=== PATIENT | female | born 1935 | race Caucasian/White ===

== ENCOUNTER 2016-11-27 11:26 | Emergency (ER) | payer MEDICARE ==
--- NOTE | 2016-11-27 11:40 | ED Physician Documentation ---
General Adult - HISTORIAN Historian: patient, other (family member) - HPI Stated Complaint: confusion "feeling funny" at 953 Chief Complaint: Altered Mental Status Onset: hours (2) Timing: still present Severity: mild <Chinyere Medina - Last Filed: 11/27/16 11:39> - HPI Further Comments: yes (Patient states that at 0950 this am she developed a sudden onset of some speach difficulties, was having some problems getting her words out, she could think of them OK. She called her grandaughter and she stated that it was hard to understand her grandmother because her speech was mixed up. She did not have any weakness or numbness, no slurred speech or swallowing problems. She came to the ED for evaluation. Did seem to be doing a little better on admission. She has not had any previous CVA or TIAs. Does have a history of hyperlipidemia.) - ROS CONST: no problems NEURO/PSYCH: difficulty with speech. denies: headache, dizziness, tingling, numbness, difficulty walking - PAST HX Past History: other (osteoarthritis, , depression, hyperlipidemia) Surgeries/Procedures: cholecystectomy, hysterectomy (BSO) - SOCIAL HX Smoking History: non-smoker Alcohol Use: none Drug Use: none - FAMILY HX Family History: No - VITAL SIGNS Vital Signs: Vital Signs Temp Pulse Resp BP Pulse Ox 98.4 F 92 H 18 162/91 96 11/27/16 11:27 11/27/16 11:27 11/27/16 11:27 11/27/16 11:27 11/27/16 11:27 - REVIEWED ASSESSMENTS Nursing Assessment Reviewed: Yes Vitals Reviewed: Yes <Monty Aden - Last Filed: 11/27/16 12:33> - PAST HX Allergies/Adverse Reactions: Allergies Allergy/AdvReac Type Severity Reaction Status Date / Time sulfamethoxazole Allergy Verified 11/27/16 12:27 [From Bactrim] trimethoprim [From Bactrim] Allergy Verified 11/27/16 12:27 Home Medications: Ambulatory Orders Medication Instructions Recorded Aspirin EC [Ecotrin] 81 mg PO DAILY 11/27/16 Atorvastatin Calcium 10 mg PO HS 11/27/16 Escitalopram Oxalate [Lexapro] 20 mg PO DAILY 11/27/16 Estrogens,Conjugated [Premarin] 0.625 mg PO DAILY 11/27/16 Lisinopril [Lisinopril] 5 mg PO DAILY 11/27/16 Progress - Results/Orders Results/Orders: 11:48 Speech is improved, is able to speak without difficulties about 80-90% of the time. Improved since admission. <Monty Aden - Last Filed: 11/27/16 12:33> ED Results Lab/Radiology - Orders Orders: ED Orders Category Date Time Status Place IV Lock 1T Care 11/27/16 11:[address] BRAIN W/O CONTRAST Stat Exams 11/27/16 Ordered CBC/PLATELET/DIFF Routine Lab 11/27/16 Ordered CMP Routine Lab 11/27/16 Ordered CREATINE KINASE Routine Lab 11/27/16 Ordered PT-INR Routine Lab 11/27/16 Ordered PTT Routine Lab 11/27/16 Ordered <Chinyere Medina - Last Filed: 11/27/16 11:39> - Lab Results Lab Results: Lab Results 11/27/16 11/27/16 11/27/16 11:40 11:40 11:40 WBC 6.20 K/ul K/ul (4.00-12.00) RBC 4.12 M/ul M/ul (3.90-5.20) Hgb 12.1 g/dL g/dL (12.0-16.0) Hct 37.4 % % (34.5-46.5) MCV 90.8 fl fl (80.0-100.0) MCH 29.3 pg pg (28.0-34.0) MCHC 32.3 g/dL g/dL (30.0-36.0) RDW 13.6 % % (11.3-14.3) Plt Count 210 K/mm3 K/mm3 (130-400) Neut % (Auto) 70.7 % % (39.0-79.0) Lymph % (Auto) 16.5 % % (16.0-50.0) [place] % (Auto) 7.3 % % (0.0-11.0) Eos % (Auto) 3.2 % % (0.0-6.8) Baso % (Auto) 0.7 (0.0-1.5) Neut # (Auto) 4.4 # k/uL # k/uL (1.4-7.7) Lymph # (Auto) 1.0 # k/uL # k/uL (0.6-4.0) [place] # (Auto) 0.4 # k/uL # k/uL (0.0-0.9) Eos # (Auto) 0.2 # k/uL # k/uL (0.0-0.6) Baso # (Auto) 0.0 # k/uL # k/uL (0.0-0.5) Reactive Lymphs % 1.6 % % (0.0-5.0) Reactive Lymphs # 0.1 # k/uL # k/uL (0.0-0.8) PT 12.1 Seconds H Seconds (9.4-11.6) INR 1.15 (0.9-1.2) APTT 20.7 Seconds L Seconds (24.5-32.8) Sodium 135 mmol/L L mmol/L (137-145) Potassium 4.5 mmol/L mmol/L (3.5-5.1) Chloride 103 mmol/L mmol/L (98-107) Carbon Dioxide 24 mmol/L mmol/L (22-30) BUN 9 mg/dL mg/dL (7-17) Creatinine 0.80 mg/dL mg/dL (0.52-1.04) Est GFR ( Amer) > 60 (60 - ) Est GFR (Non-Af Amer) > 60 (60 - ) Glucose 92 mg/dL mg/dL (74-106) Calcium 9.1 mg/dL mg/dL (8.4-10.2) Total Bilirubin 0.8 mg/dL mg/dL (0.2-1.3) AST 23 U/L U/L (15-46) ALT 17 U/L U/L (13-69) Alkaline Phosphatase 119 U/L U/L (38-126) Creatine Kinase 110 U/L U/L (30-135) Total Protein 8.0 g/dL g/dL (6.3-8.2) Albumin 3.7 g/dL g/dL (3.5-5.0) - Radiology Radiology Impressions: Patient Study Name: MARLENY PLUMMER Date: Nov 27, 2016 11:41:20 AM CDT Modality Type: CT\\SR Gender: F Description: CT BRAIN W/O CONTRAST : 35 Institution: [facility] Physician: CHINYERE MEDINA - ER Examination: CT head without contrast History: Slurred speech Comparison exam: None available Technique: Noncontrast head CT protocol. Findings: Ventricles and sulci are mildly prominent consistent for patient age. Cerebrocerebellar parenchyma demonstrates periventricular low attenuation consistent with small vessel disease. No evidence for parenchymal hemorrhage. No evidence for mass or mass effect. No midline shift. No extra axial fluid collections. Partial visualization of the paranasal sinuses, mastoid air cells, orbits, skull and scalp without gross regularity. Streak artifact from dental hardware. Impression: Age related changes. No acute parenchymal process. No hemorrhage. - Orders Orders: ED Orders Category Date Time Status Place IV Lock 1T Care 11/27/16 11:[address] BRAIN W/O CONTRAST Stat Exams 11/27/16 Completed CBC/PLATELET/DIFF Routine Lab 11/27/16 11:40 Completed CMP Routine Lab 11/27/16 11:40 Completed CREATINE KINASE Routine Lab 11/27/16 11:40 Completed PT-INR Routine Lab 11/27/16 11:40 Completed PTT Routine Lab 11/27/16 11:40 Completed <Monty Aden - Last Filed: 11/27/16 12:33> General Adult Physical Exam - PHYSICAL EXAM GENERAL APPEARANCE: no distress EENT: eye inspection normal, ENT inspection normal NECK: normal inspection, thyroid normal, supple RESPIRATORY: no resp distress, chest non-tender, breath sounds normal. No: wheezes, rales, rhonchi CVS: reg rate & rhythm, heart sounds normal, equal pulses, no murmur ABDOMEN: soft BACK: no CVA tenderness SKIN: warm/dry, normal color EXTREMITIES: non-tender, normal range of motion NEURO: oriented X3, CN's nml as tested, motor nml (no pronator drift), sensation nml, mood/affect nml, cognition normal, other (dyarthria part of the time). No: facial droop <Monty Aden - Last Filed: 11/27/16 12:33> Discharge <Chinyere Medina - Last Filed: 11/27/16 11:39> <Monty Aden - Last Filed: 11/27/16 12:33> Referrals: Elvis Parrish MD [Primary Care Provider] - 2 Days
[2016-11-27 11:49] LABS: BASOPHILS % 0.7 (0.0-1.5); EOSINOPHILS % 3.2 % (0.0-6.8); MEAN CORPUSCULAR HEMOGLOBIN 29.3 pg (28.0-34.0); MEAN CORPUSCULAR VOLUME 90.8 fl (80.0-100.0); MONOCYTES % 7.3 % (0.0-11.0); NEUTROPHILS # 4.4 # k/uL (1.4-7.7)
--- NOTE | 2016-11-27 12:01 | Diagnostic Imaging Report ---
CHINYERE HODGES [facility] [address] [facility] [address] [place], [place]. [address] Report Submission Date: Nov 27, 2016 11:58:27 AM CDT Patient Study Name: MARLENY PLUMMER Date: Nov 27, 2016 11:41:20 AM CDT Modality Type: CT\SR Gender: F Description: CT BRAIN W/O CONTRAST : 35 Institution: [facility] Physician: CHINYERE HODGES Examination: CT head without contrast History: Slurred speech Comparison exam: None available Technique: Noncontrast head CT protocol. Findings: Ventricles and sulci are mildly prominent consistent for patient age. Cerebrocerebellar parenchyma demonstrates periventricular low attenuation consistent with small vessel disease. No evidence for parenchymal hemorrhage. No evidence for mass or mass effect. No midline shift. No extra axial fluid collections. Partial visualization of the paranasal sinuses, mastoid air cells, orbits, skull and scalp without gross regularity. Streak artifact from dental hardware. Impression: Age related changes. No acute parenchymal process. No hemorrhage. Electronically signed on Nov 27, 2016 11:58:27 AM CDT by: Aleksey SLAUGHTER
[2016-11-27 12:11] LABS: eGFR (African) > 60; eGFR (Non-African) > 60
[2016-11-27] MEDS: LABETALOL HCL 100MG/20ML VIAL IVP STA (13:01)
[2016-11-27 13:11] VITALS: BP 175/80
== END 2016-11-27 13:05 ==
LOC: ED 11:26
DX: R47.81 Slurred speech (principal)
CPT/HCPCS: 70450; 80053; 82550; 85025; 85610; 85730; J3490; 99283; S1016

== ENCOUNTER 2017-05-18 11:39 | Emergency (ER) | payer MEDICARE ==
--- NOTE | 2017-05-18 11:58 | ED Physician Documentation ---
General Adult - HISTORIAN Historian: patient - HPI Stated Complaint: confusion, lethargic Chief Complaint: Weakness Onset: other (pt is confused. family with the pt states she actually has had increasing confusion and lethergy for months now. More specifically for last month she was moved to assisted living where she is depressed and she has had more confusion. She is had an issue with her heart in Nov -- she did wear a holter monitor and she was told this was fine. Family reports her urine test at the living center yesterday did show a UTI (no treatment) . When discussing with pt she states the only pain she is having is frmo where she notes the nurse started her IV. ) Timing: still present Severity: mild Last known Well Date: 04/15/17 Last Known Well Time: 08:00 Last known Well Code/Unknown Code: Unknown - ROS CONST: weakness. denies: fever EYES/ENT: denies: nasal drainage CVS/RESP: denies: chest pain, shortness of breath, cough GI/: denies: problems urinating, vomiting, nausea, diarrhea MS/SKIN/LYMPH: denies: rash NEURO/PSYCH: fainting (per family member at bedside about one month ago she did have an episode where she did "pass out" ). denies: headache, difficulty with speech - PAST HX Past History: hypertension Other History: other (history of CVA ) Surgeries/Procedures: other Immunizations: UTD Allergies/Adverse Reactions: Allergies Allergy/AdvReac Type Severity Reaction Status Date / Time sulfamethoxazole Allergy Verified 05/18/17 12:06 [From Bactrim] trimethoprim [From Bactrim] Allergy Verified 05/18/17 12:06 - SOCIAL HX Smoking History: non-smoker Alcohol Use: none Drug Use: none - FAMILY HX Family History: No - VITAL SIGNS Vital Signs: Vital Signs Temp Pulse Resp BP Pulse Ox 175/80 11/27/16 13:08 - REVIEWED ASSESSMENTS Nursing Assessment Reviewed: Yes Vitals Reviewed: Yes Progress - Progress Progress: 1400: resting in bed. Family at bedside DG [id number]: Discussed results with daughter via phone. Will request transfer to [place] per daughter request. DG [id number]: Jenni fish housekeeper [facility] with info and will return call with accepting physician DG 1510 : Jenni from [facility] accepting with Dr Amador DG 1515: Daughter notified of accepting physician and transfer DG ED Results Lab/Radiology - Radiology Radiology Impressions: Chest AP portable single view at 1228 hours of May 18, 2017 Clinical history: Dyspnea with wheezing There is right paratracheal mass measures about 4 cm in diameter with a possible 1 cm nodule in the right upper lobe require CT scan of the chest for further evaluation and exclude carcinoma. Moderate cardiomegaly. Mild hyperinflation. Small infiltrate in the right lung base . Impression: Right paratracheal mass with possible nodule in the right upper lobe Require CT scan of the chest with IV contrast Small infiltrate in the right lung base with cardiomegaly Electronically signed on May 18, 2017 12:44:18 PM CDT by: Monty Lawrence [facility] Adult Physical Exam - PHYSICAL EXAM GENERAL APPEARANCE: no distress EENT: eye inspection normal, JOSHUA NECK: normal inspection RESPIRATORY: no resp distress, wheezes (RUL and RLL ) CVS: reg rate & rhythm, heart sounds normal, no murmur ABDOMEN: soft, normal bowel sounds, no distension, non-tender BACK: normal inspection SKIN: warm/dry, normal color EXTREMITIES: non-tender, normal range of motion, no evidence of injury, no edema NEURO: motor nml, sensation nml, disoriented Discharge Clincal Impression: Lung mass, Confusion Pneumonia Qualifiers: Pneumonia type: due to unspecified organism Laterality: right Lung location: lower lobe of lung Qualified Code(s): J18.1 - Lobar pneumonia, unspecified organism Referrals: Monty Aden MD [Primary Care Provider] - 2 Days Comments: 1. [facility] for admission [address] Amador accepting 3. Daughter via phone aware and agreeable to transfer Condition: Serious Disposition: 02 XFER SHT-TRM HOSP Decision to Admit: NO Date of Decison to Admit: 05/18/17 Decision Time: 15:10
[2017-05-18 12:54] LABS: BASOPHILS % 0.6 (0.0-1.5); EOSINOPHILS % 0.7 % (0.0-6.8); MEAN CORPUSCULAR HEMOGLOBIN 27.1 pg (28.0-34.0); MEAN CORPUSCULAR VOLUME 88.9 fl (80.0-100.0); MONOCYTES % 8.1 % (0.0-11.0); NEUTROPHILS # 6.8 # k/uL (1.4-7.7)
[2017-05-18 13:01] LABS: eGFR (African) > 60; eGFR (Non-African) > 60
[2017-05-18 15:45] VITALS: BP 147/78
[2017-05-19 07:09] LABS: APPEARANCE,URINE CLEAR (CLEAR); COLOR,URINE YELLOW (YELLOW); OCCULT BLOOD,URINE 1+ (NEGATIVE); PH URINE 5.5 (5.0 - 8.0)
--- NOTE | 2017-05-19 08:09 | Diagnostic Imaging Report ---
CHINYERE HODGES [facility] [address] [facility] [address] [place], [place]. [address] Report Submission Date: May 18, 2017 12:44:18 PM CDT Patient Study Name: MARLENY PLUMMER Date: May 18, 2017 12:28:35 PM CDT Modality Type: DX Gender: F Description: CHEST : 35 Institution: [facility] Physician: CHINYERE HODGES Chest AP portable single view at 1228 hours of May 18, 2017 Clinical history: Dyspnea with wheezing There is right paratracheal mass measures about 4 cm in diameter with a possible 1 cm nodule in the right upper lobe require CT scan of the chest for further evaluation and exclude carcinoma. Moderate cardiomegaly. Mild hyperinflation. Small infiltrate in the right lung base . Impression: Right paratracheal mass with possible nodule in the right upper lobe Require CT scan of the chest with IV contrast Small infiltrate in the right lung base with cardiomegaly Electronically signed on May 18, 2017 12:44:18 PM CDT by: Monty SLAUGHTER
--- NOTE | 2017-05-19 08:11 | Diagnostic Imaging Report ---
CHINYERE HODGES [facility] [address] [address] Report Submission Date: May 18, 2017 2:30:33 PM CDT Patient Study Name: MARLENY PLUMMER Date: May 18, 2017 1:57:31 PM CDT Modality Type: CT\SR Gender: F Description: CT CHEST W/ CONTRAST : 35 Institution: [facility] Physician: CHINYERE HODGES CT chest with contrast Date of study: May 18, 2017 Comparison: Chest radiograph same date CLINICAL HISTORY: CT CHEST WITH CONTRAST, LUNG MASS SEEN ON CXR TODAY, WEAKNESS , SOA, PT UNABLE TO HOLD BREATH FOR THE EXAM (Hx) / ITS.REASON Lung mass Note time : 05/18/2017 3:10:28 PM User : Zarina Shaw CT CHEST WITH CONTRAST, LUNG MASS SEEN ON CXR TODAY, WEAKNESS, SOA (DICOM Hx) TECHNIQUE: 5 mm contiguous axial images of the chest with contrast. Sagittal and coronal reconstructions. FINDINGS: There are multiple thyroid nodules. The thyroid gland is enlarged Right paratracheal lymphadenopathy is present. These appear vena cava faint early displaced. The azygos vein is compressed and laterally displaced. The right paratracheal mass measures up to 6 cm impinges upon the aortic arch and anterior trachea. The trachea as posteriorly displaced. Belkys is compressed. The mass is inseparable from the right pulmonary artery. There subcarinal lymphadenopathy. A pericardial effusion is present. The pericardial effusion measures up to 5 cm. There bilateral pleural effusions. The upper abdomen shows a hiatus hernia. There is a cyst in the liver. No adrenal masses seen. Right paratracheal mass is inseparable from the right hilum. The left hilar lymph nodes are within normal limits. The aorticopulmonary window lymph nodes appear enlarged Lung windows show emphysematous changes in the lungs. There is a right upper lobe spiculated mass measuring 1.6 cm. Right upper lobe nodule measures 3 mm. There is a calcified granuloma in the left upper lobe. Fluid is present in the right oblique fissure. Infiltrate is present in the left lower lobe. Right lateral pleural thickening or loculated fluid is present. There is a 3 mm appear segmental left lower lobe nodular density. Bilateral bronchitis. Compressive atelectasis is present in the lower lobes. 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 There is also aorticopulmonary window and subcarinal lymphadenopathy Bilateral pleural effusions with right lateral pleural thickening or loculated fluid and fluid in the right oblique fissure Spiculated the right upper lobe soft tissue mass Moderate to severe COPD changes 3 mm right apical pulmonary nodule Bibasilar atelectasis with patchy infiltrate in the left lung base. There is also a 3 mm left lower lobe nodule. Bilateral bronchitis is present. Electronically signed on May 18, 2017 2:30:33 PM CDT by: Wilfredo SLAUGHTER
== END 2017-05-18 15:42 | disposition short-term general hospital (02) ==
LOC: ED 11:39
DX: J18.1 Lobar pneumonia, unspecified organism (principal); R41.0 Disorientation, unspecified
CPT/HCPCS: 71045; 71260; 80053; 81002; 82553; 83880; 84484; 85025; 85379; 87040; 99284; Q9967